=== PATIENT | male | born 1965 | race Caucasian/White ===

== ENCOUNTER → 2024-07-01 | Day surgery (SDC) | payer OTHER ==
[~2024-07-01] MED LIST: AMLODIPINE BESY10 MG PO; CEFAZOLIN SODIUM 2 GM ONE; DEXAMETHASONE SOD PHOS INJ 4 MG/ML SDV ONE; EPHEDRINE SULFATE INJ 50 MG/ML VIAL ONE; FENTANYL CITRATE/PF 100MCG/2 ML INJ ONE; GLYCOPYRROLATE INJ 0.2 MG/ML VIAL ONE; LIDOCAINE HCL 2% LOCAL INJ 5 ML SDV VIAL INJ ONE; MIDAZOLAM HCL 2 MG/2 ML VIAL ONE; ONDANSETRON HCL INJ 2MG/ML 2ML 2 MG/ML VIAL ONE; PHENYLEPHRINE HCL 1% 10 MG/ML VIAL ONE; PROPOFOL IV EMULSION 10 MG/ML 20 ML VIAL ONE; ROCURONIUM BROMIDE 10 MG/ML 5ML VIAL IV ONE; SEVOFLURANE INHAL SOLN 250 ML PEN BTL ONE
[2024-07-01] MEDS: LACTATED RINGER'S 1,000 ML ONE (06:39)
[2024-07-01] MEDS: CEFTRIAXONE 1 GM VIAL ONE (10:21)
[2024-07-01 10:50] VITALS: BP 129/86; PULSE 89; RESP 15; O2SAT 99
== END | disposition home or self-care (01) ==
LOC: OR 06:19
PROVIDERS: ATTEND Orthopaedic Surgery
DX: S43.111A Subluxation of right acromioclavicular joint, initial encounter (principal); I10 Essential (primary) hypertension; F17.210 Nicotine dependence, cigarettes, uncomplicated; X58.XXXA Exposure to other specified factors, initial encounter; Z01.810 Encounter for preprocedural cardiovascular examination; Z79.899 Other long term (current) drug therapy
CPT/HCPCS: 23552; 93005; C1713; J0690; J0696; J1100; J2003; J2250; J2371; J2405; J2704; J3010; J7121